=== PATIENT | female | born 1945 | race Caucasian/White ===

== ENCOUNTER 2022-07-10 01:04 | Emergency (ER) | payer MEDICARE, MEDICAID ==
[~2022-07-10] VITALS: Ht 160 cm; Wt 81.0 kg
[~2022-07-10 01:04] MED LIST: ALPR-324 PO; ALPR1TAB7 PO; AMIO200T67 PO; AMIT50TA3 PO; APIX5TAB3 PO; ESCI5TAB PO; LOSA25TA41 PO; METO-395 PO; POLY1DRO2 OP
[2022-07-10] MEDS ORDERED: methylPREDNISolone sod succ 125mg/2ml vial IV ONE (01:35)
[2022-07-10] MEDS ORDERED: ipratropium 0.5 MG/2.5ML nebule IH ONE (01:35)
[2022-07-10] MEDS ORDERED: albuterol 2.5 MG/3 ML nebule CONTNEB STA (01:35)
[2022-07-10 01:50] LABS: BASOPHILS % (AUTO) 0.3 % (0-1); EOSINOPHILS % (AUTO) 0.2 % (0-6); HEMATOCRIT 37.4 % (35.0-45.0); HEMOGLOBIN 12.4 g/dl (12.0-16.0); LYMPHOCYTES # (AUTO) 0.8 X10'3 (1.1-4.8); LYMPHOCYTES % (AUTO) 8.2 % (21-51); MEAN CORPUSCULAR HEMOGLOBIN 27.8 PG (27.0-31.0); MEAN CORPUSCULAR HGB CONC 33.2 g/dL (33.0-36.5); MEAN CORPUSCULAR VOLUME 83.8 FL (78-98); MEAN PLATELET VOLUME 7.3 FL (7.4-10.4); MONOCYTES # (AUTO) 0.4 X10'3 (0-0.9); MONOCYTES % (AUTO) 4.5 % (2-12); NEUTROPHILS # (AUTO) 8.6 X10'3 (1.8-7.7); NEUTROPHILS % (AUTO) 86.8 % (42-75); PLATELET COUNT 231 X10'3 (140-440); RED BLOOD COUNT 4.47 X10'6 (4.20-5.60); RED CELL DISTRIBUTION WIDTH 15.8 % (11.5-14.5); WHITE BLOOD COUNT 9.9 X10'3 (4.5-11.0)
[2022-07-10] MEDS ORDERED: ipratropium/albuterol 3ml nebule NEB ONE (01:50)
[2022-07-10 02:10] LABS: ALANINE AMINOTRANSFERASE 17 U/L (12-78); ALBUMIN 3.6 G/DL (3.4-5.0); ALBUMIN/GLOBULIN RATIO 0.9 (1.1-1.5); ALKALINE PHOSPHATASE 86 IU/L (46-116); ASPARTATE AMINO TRANSFERASE 29 U/L (10-37); BILIRUBIN,TOTAL 0.8 MG/DL (0.1-1.0); BLOOD UREA NITROGEN 22 MG/DL (7-18); BUN/CREATININE RATIO 17.6 (6.6-38.0); CREATININE 1.25 MG/DL (0.40-0.90); GLUCOSE 243 MG/DL (70-104); TOTAL CARBON DIOXIDE 28.6 MMOL/L (24-32); TOTAL PROTEIN 7.7 G/DL (6.4-8.2); eGFR 41 ML/MIN
[2022-07-10 02:17] LABS: CHLORIDE 103 MMOL/L (99-107)
[2022-07-10] MEDS ORDERED: furosemide 10 MG/1 ML 10ml inj IV ONE (02:20)
[2022-07-10] MEDS ORDERED: diltiazem 5mg/ml 5ml inj. IV ONE (02:20)
[2022-07-10 02:23] LABS: ANION GAP 12 (8-16); POTASSIUM 3.5 MMOL/L (3.5-5.1); SODIUM 144 MMOL/L (135-145)
--- NOTE | 2022-07-10 03:00 | NUR ---
0300 pt rate in 50's, pt states that she feels better, Dr Summers notifed
--- NOTE | 2022-07-10 04:48 | NUR ---
0400 pt sleeping, sat 96% on 3 LNC, easily awaken, no complaints at this time
[2022-07-10 05:41] VITALS: BP 140/63
--- NOTE | 2022-07-10 06:07 | NUR ---
0500 pt clothing changed, large amout of urine noted on pads as well, pt voided another 500cc of urine 0600 pt asst to [facility], pt void 600cc of urine w/o difficulty
--- NOTE | 2022-07-10 06:24 | NUR ---
report given to Eladio BRAXTON.
--- NOTE | 2022-07-10 06:25 | NUR ---
care of pt given to IRAIS Hendricks. Pt waiting ride home at this time.
== END 2022-07-10 07:28 | disposition home or self-care (01) ==
LOC: ER 01:05
DX: R06.02 Shortness of breath (principal); I48.20 Chronic atrial fibrillation, unspecified; I11.0 Hypertensive heart disease with heart failure; I50.9 Heart failure, unspecified; J44.9 Chronic obstructive pulmonary disease, unspecified; Z88.5 Allergy status to narcotic agent
CPT/HCPCS: 36415; 71045; 80053; 83880; 84484; 85025; 93005; 94640; 96374; 96375; 99285; J1940; J2930; J3490; 94760

== ENCOUNTER 2022-10-06 15:05 | Emergency (ER) | payer MEDICARE, MEDICAID ==
[~2022-10-06] VITALS: Ht 165.1 cm; Wt 71.4 kg
[2022-10-06 16:34] LABS: BASOPHILS # (AUTO) 0.1 X10'3 (0-0.2); BASOPHILS % (AUTO) 0.6 % (0-1); EOSINOPHILS # (AUTO) 0.2 X10'3 (0-0.9); EOSINOPHILS % (AUTO) 1.2 % (0-6); HEMATOCRIT 34.3 % (35.0-45.0); LYMPHOCYTES # (AUTO) 2.2 X10'3 (1.1-4.8); LYMPHOCYTES % (AUTO) 16.5 % (21-51); MEAN CORPUSCULAR HEMOGLOBIN 27.3 PG (27.0-31.0); MEAN CORPUSCULAR VOLUME 85.2 FL (78-98); MEAN PLATELET VOLUME 7.5 FL (7.4-10.4); MONOCYTES # (AUTO) 1.3 X10'3 (0-0.9); MONOCYTES % (AUTO) 9.7 % (2-12); NEUTROPHILS # (AUTO) 9.7 X10'3 (1.8-7.7); PLATELET COUNT 366 X10'3 (140-440); RED BLOOD COUNT 4.03 X10'6 (4.20-5.60); RED CELL DISTRIBUTION WIDTH 17.5 % (11.5-14.5); WHITE BLOOD COUNT 13.4 X10'3 (4.5-11.0)
[2022-10-06 16:35] LABS: CLARITY,URINE CLEAR (Clear); COLOR,URINE YELLOW (Yellow); GLUCOSE, URINE NEGATIVE (Neg); KETONES,URINE NEGATIVE (Neg); LEUKOCYTE ESTERASE ,URINE NEGATIVE (Neg); NITRITES, URINE NEGATIVE (Neg); OCCULT BLOOD,URINE NEGATIVE (Neg); PROTEIN,URINE TRACE mg/dl (Neg); UROBILINOGEN,URINE 0.2 E.U/dL (0.2-1.0)
[2022-10-06 16:40] LABS: UA COLLECTION TYPE VOIDED
[2022-10-06 16:42] LABS: RBC,URINE NONE SEEN /HPF (0-2); WBC,URINE 0-4 /HPF (0-4)
[2022-10-06 16:43] LABS: BACTERIA,URINE FEW /HPF (Neg); MUCUS STRANDS FEW /LPF (Neg); SQUAMOUS EPITHELIAL CELL,UR FEW /LPF (FEW); TRANSITIONAL EPI CELLS,URINE FEW /HPF
[2022-10-06 16:53] LABS: ALANINE AMINOTRANSFERASE 27 U/L (12-78); ALBUMIN 3.9 G/DL (3.4-5.0); ALKALINE PHOSPHATASE 82 IU/L (46-116); ANION GAP 8 (8-16); ASPARTATE AMINO TRANSFERASE 23 U/L (10-37); BILIRUBIN,TOTAL 0.5 MG/DL (0.1-1.0); BLOOD UREA NITROGEN 42 MG/DL (7-18); BUN/CREATININE RATIO 22.8 (6.6-38.0); CALCIUM 8.9 MG/DL (8.5-10.1); CHLORIDE 102 MMOL/L (99-107); CREATININE 1.84 MG/DL (0.40-0.90); GLUCOSE 158 MG/DL (70-104); POTASSIUM 5.5 MMOL/L (3.5-5.1); SODIUM 134 MMOL/L (135-145); TOTAL CARBON DIOXIDE 24.1 MMOL/L (24-32); TOTAL PROTEIN 7.8 G/DL (6.4-8.2); eGFR 27 ML/MIN
[2022-10-06] MEDS ORDERED: normal saline 1000ML IV soln IVB ONE (17:05)
--- NOTE | 2022-10-06 18:00 | NUR ---
TC to Sarah from [facility] patient sent to ED for hallucinations and psych evaluation, HX mental health "issues", telephone call transfered to MARGIE Knight.
[2022-10-06 18:52] LABS: ETHANOL < 0.010 GM/DL (0.0-0.010)
--- NOTE | 2022-10-06 19:32 | NUR ---
MEGAN HAYES [phone]/ [phone]
--- NOTE | 2022-10-06 19:50 | NUR ---
PT LAYING IN HOSPITAL BED RESTING WITH EYES CLOSED, NO DISTRESS NOTED
[2022-10-06 20:36] LABS: URINE AMPHETAMINE SCREEN NEGATIVE (Neg); URINE BARBITUATE SCREEN NEGATIVE (Neg); URINE BENZODIAZEPINES SCREEN NEGATIVE (Neg); URINE CANNABINOID SCREEN NEGATIVE (Neg); URINE COCAINE SCREEN NEGATIVE (Neg); URINE METHADONE SCREEN NEGATIVE (Neg); URINE OPIATE SCREEN NEGATIVE (Neg); URINE PHENCYCLIDINE SCREEN NEGATIVE (Neg)
--- NOTE | 2022-10-06 23:08 | NUR ---
pt placed onto a inpatient bed
--- NOTE | 2022-10-07 07:25 | NUR ---
TC To [place] to request pts med list. Bond states "you know she signed herself out AMA last night right?" Report and notes suggest pt was sent out involuntarily. Med list to be faxed
--- NOTE | 2022-10-07 07:27 | NUR ---
When questioned about whether she left [facility], pt states "No, they made me go."
[2022-10-07] MEDS ORDERED: SPIR25TA5 PO (07:56)
[2022-10-07] MEDS ORDERED: RIVA20TA PO (07:56)
[2022-10-07] MEDS ORDERED: AMIO200T61 PO (07:56)
[2022-10-07] MEDS ORDERED: LORA-269 PO (07:56)
--- NOTE | 2022-10-07 07:57 | NUR ---
TC from [facility] for update, update provided. Telephone provided to pt for phone call.
[2022-10-07] MEDS ORDERED: ATOR20TA PO (08:39)
[2022-10-07] MEDS ORDERED: CARV-50 PO (08:39)
[2022-10-07] MEDS ORDERED: ALB0.5UD IH (08:39)
[2022-10-07] MEDS ORDERED: AMLO10TA13 PO (08:39)
--- NOTE | 2022-10-07 09:25 | NUR ---
Pt sitting calmly on side of bed quietly eating breakfast
--- NOTE | 2022-10-07 11:49 | NUR ---
Pt ambulating to bathroom, calm and cooperative.
--- NOTE | 2022-10-07 12:33 | NUR ---
Report given to Helen BRAXTON
[2022-10-07] MEDS ORDERED: albuterol 2.5 MG/3 ML nebule NEB PRN (13:10)
--- NOTE | 2022-10-07 13:26 | NUR ---
PATIENT LYING IN BED WITH HER EYES CLOSED, EQUAL RISE AND FALL OF CHEST.
[2022-10-07] MEDS: amLODIPine 5mg tablet PO SCH (14:43)
--- NOTE | 2022-10-07 14:46 | NUR ---
PATIENTS NEIGHBOR IS AT BEDSIDE AND BROUGHT PATIENT A BOOK
[2022-10-07] MEDS ORDERED: normal saline 1000ML IV soln IVB ONE (15:25)
--- NOTE | 2022-10-07 16:00 | NUR ---
PATIENT SITTING UP IN BED TALKED WITH ROOMMATE
--- NOTE | 2022-10-07 16:00 | NUR ---
IV STARTED FOR IV FLUID BOLUS DUE TO LABS.
[2022-10-07 16:02] LABS: BASOPHILS # (AUTO) 0.1 X10'3 (0-0.2); BASOPHILS % (AUTO) 0.5 % (0-1); EOSINOPHILS # (AUTO) 0.1 X10'3 (0-0.9); EOSINOPHILS % (AUTO) 1.4 % (0-6); HEMATOCRIT 33.2 % (35.0-45.0); HEMOGLOBIN 11.1 g/dl (12.0-16.0); LYMPHOCYTES # (AUTO) 1.8 X10'3 (1.1-4.8); LYMPHOCYTES % (AUTO) 17.9 % (21-51); MEAN CORPUSCULAR HEMOGLOBIN 28.4 PG (27.0-31.0); MEAN CORPUSCULAR HGB CONC 33.4 g/dL (33.0-36.5); MEAN CORPUSCULAR VOLUME 85.1 FL (78-98); MEAN PLATELET VOLUME 7.2 FL (7.4-10.4); MONOCYTES % (AUTO) 9.7 % (2-12); NEUTROPHILS # (AUTO) 6.9 X10'3 (1.8-7.7); NEUTROPHILS % (AUTO) 70.5 % (42-75); PLATELET COUNT 317 X10'3 (140-440); RED CELL DISTRIBUTION WIDTH 18.2 % (11.5-14.5); WHITE BLOOD COUNT 9.8 X10'3 (4.5-11.0)
[2022-10-07] MEDS: levoTHYROXINE 25mcg tablet PO SCH (16:14)
[2022-10-07 16:22] LABS: ALANINE AMINOTRANSFERASE 22 U/L (12-78); ALBUMIN 3.7 G/DL (3.4-5.0); ALKALINE PHOSPHATASE 83 IU/L (46-116); ANION GAP 6 (8-16); ASPARTATE AMINO TRANSFERASE 19 U/L (10-37); BILIRUBIN,TOTAL 0.3 MG/DL (0.1-1.0); BLOOD UREA NITROGEN 38 MG/DL (7-18); CALCIUM 9.1 MG/DL (8.5-10.1); CHLORIDE 103 MMOL/L (99-107); CREATININE 1.46 MG/DL (0.40-0.90); GLUCOSE 106 MG/DL (70-104); POTASSIUM 5.2 MMOL/L (3.5-5.1); SODIUM 134 MMOL/L (135-145); TOTAL CARBON DIOXIDE 24.9 MMOL/L (24-32); TOTAL PROTEIN 7.3 G/DL (6.4-8.2); eGFR 35 ML/MIN
--- NOTE | 2022-10-07 16:48 | NUR ---
PACKET SENT TO [facility]
[2022-10-07] MEDS: rivaroxaban 20mg tablet PO SCH (18:54)
--- NOTE | 2022-10-07 19:50 | NUR ---
Received report from Anne BRAXTON. Pt A&O x 2, unable to recal date/event. Pt appears somewhat paranoid with tangential speech. Pt endorses increased confusion/difficulty with processing thoughts. Denies SI/HI, AV/H. Pt states depression remains unchanged, no c/o anxiety. [facility] to complete full eval in AM. Pt denies pain at this time. Lying supine in green scrubs, appears to be sleeping.
[2022-10-07] MEDS: amiodarone 200mg tablet PO SCH (20:12)
[2022-10-07] MEDS: ESCITALOPRAM OXALATE 5 MG TABLET PO SCH (20:13)
[2022-10-07] MEDS: carvedilol 6.25mg tablet PO SCH (20:13)
[2022-10-07] MEDS: atorvastatin 20mg tablet PO SCH (20:13)
[2022-10-07] MEDS ORDERED: levoTHYROXINE 25mcg tablet PO ONE ×2 (21:15→21:30)
[2022-10-07] MEDS ORDERED: normal saline 1000ml 1,000 ML IV ONE (21:15)
[2022-10-07] MEDS ORDERED: acetaminophen 325mg tablet PO PRN (21:15)
--- NOTE | 2022-10-07 21:51 | NUR ---
Pt ambulated to nurse's station reporting 6/10 headache "like a headband". This nurse received verbal order for PRN Acetaminophen 325mg 2 tabs q4 hours PO for pain, 50 mcg synthroid PO now, and 1000mL NS bolus IV running to gravity for patient. Pt PIV to left forearm flushed without difficulty/pain. Pt conversing appropriately. Lying in bed resting.
--- NOTE | 2022-10-07 22:58 | NUR ---
1000 mL NS IV completed. No s/s of infiltrate. Flushed with 10mL NS without difficulty.
[2022-10-07] MEDS: LORazepam 0.5 MG tablet PO PRN (23:51)
[2022-10-08] MEDS ORDERED: traZODone 50mg tablet PO ONE ×2 (00:40→22:05)
--- NOTE | 2022-10-08 00:48 | NUR ---
Pt lying supine. C/O increased anxiety and difficulty sleeping. PRN ativan given. One time order for Trazodone given.
--- NOTE | 2022-10-08 01:55 | NUR ---
Pt appears to be sleeping, lying supine. In no apparent distress.
--- NOTE | 2022-10-08 03:30 | NUR ---
Pt lying on back, appears to be sleeping. In no apparent distress.
--- NOTE | 2022-10-08 05:10 | NUR ---
Pt lying on left side, appears to be sleeping. In no apparent distress.
--- NOTE | 2022-10-08 05:57 | NUR ---
Pt lying in bed awake, conversing with peer. In no apparent distress. Pt expressed to this TILE SPRAYER that PRN Trazodone helped with sleep.
--- NOTE | 2022-10-08 06:30 | NUR ---
Lab here to draw the patient.
--- NOTE | 2022-10-08 06:44 | NUR ---
Pt asked for some bath wipes and was provided with some.
--- NOTE | 2022-10-08 06:45 | NUR ---
Pt up to use the bathroom.
[2022-10-08 06:59] LABS: ALANINE AMINOTRANSFERASE 16 U/L (12-78); ALBUMIN 3.3 G/DL (3.4-5.0); ALKALINE PHOSPHATASE 71 IU/L (46-116); ANION GAP 7 (8-16); ASPARTATE AMINO TRANSFERASE 19 U/L (10-37); BILIRUBIN,TOTAL 0.4 MG/DL (0.1-1.0); BLOOD UREA NITROGEN 28 MG/DL (7-18); CALCIUM 8.6 MG/DL (8.5-10.1); CHLORIDE 107 MMOL/L (99-107); CREATININE 1.27 MG/DL (0.40-0.90); GLUCOSE 106 MG/DL (70-104); POTASSIUM 4.6 MMOL/L (3.5-5.1); SODIUM 139 MMOL/L (135-145); TOTAL CARBON DIOXIDE 25.5 MMOL/L (24-32); TOTAL PROTEIN 6.6 G/DL (6.4-8.2); eGFR 41 ML/MIN
[2022-10-08] MEDS: levoTHYROXINE 25mcg tablet PO SCH (07:28)
--- NOTE | 2022-10-08 08:16 | NUR ---
[facility] is at bedside evaluating the patient.
[2022-10-08] MEDS: carvedilol 6.25mg tablet PO SCH ×2 (08:22→19:48)
[2022-10-08] MEDS: spironolactone 25 MG tablet PO SCH (08:22)
[2022-10-08] MEDS: losartan 25mg tablet PO SCH (08:22)
[2022-10-08] MEDS: amiodarone 200mg tablet PO SCH ×2 (08:22→19:48)
[2022-10-08] MEDS: amLODIPine 5mg tablet PO SCH (08:23)
--- NOTE | 2022-10-08 08:23 | NUR ---
K+ was 4.6 this morning, WNL.
--- NOTE | 2022-10-08 09:24 | NUR ---
[facility] reports that pt is not being placed on a hold. She will refer to outreach and education social worker.
--- NOTE | 2022-10-08 10:31 | NUR ---
tech did binax swab on pt, tech took tube down to lab.
--- NOTE | 2022-10-08 12:09 | NUR ---
Pt is eating her lunch.
--- NOTE | 2022-10-08 12:42 | NUR ---
D/c'd saline lock right forearm.
--- NOTE | 2022-10-08 14:08 | NUR ---
Pt is awake lying quietly in bed on her back.
--- NOTE | 2022-10-08 16:07 | NUR ---
Rebeca walker in [facility] - 10/08/22 at 1628 by MORRIS Pt is awake lying quietly in bed. Offered her some reading materials. Pt statea
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
--- NOTE | 2022-10-08 17:26 | NUR ---
Pt requested to make a phone call. Pt called Sarita.
[2022-10-08] MEDS: rivaroxaban 20mg tablet PO SCH (17:49)
--- NOTE | 2022-10-08 18:39 | NUR ---
Patient ate her dinner. She is attempting to sleep. No distress.
[2022-10-08] MEDS: ESCITALOPRAM OXALATE 5 MG TABLET PO SCH (20:12)
[2022-10-08] MEDS: atorvastatin 20mg tablet PO SCH (20:12)
--- NOTE | 2022-10-08 21:35 | NUR ---
Patient is sleeping quietly. No distress.
--- NOTE | 2022-10-08 22:05 | NUR ---
Dr. ARCHER was in overflow. He gave this newswriter a verbal order for Trazadone 50 mg order for this patient. Anxiety is present, a PRN will be given for that.
[2022-10-08] MEDS: LORazepam 0.5 MG tablet PO PRN (22:14)
--- NOTE | 2022-10-09 01:51 | NUR ---
Patient is wupine in bed sleeping.
--- NOTE | 2022-10-09 03:07 | NUR ---
Patient is sleeping quietly, no distress.
--- NOTE | 2022-10-09 04:45 | NUR ---
Patient is sleeping quietly in no distress.
--- NOTE | 2022-10-09 06:15 | NUR ---
Assummed care. Pt awake and in bed with no distress noted.
[2022-10-09] MEDS: levoTHYROXINE 25mcg tablet PO SCH (08:11)
--- NOTE | 2022-10-09 08:25 | NUR ---
Medications administered. Pt is in no distress. Pt eating breakfast at this time.
[2022-10-09] MEDS: spironolactone 25 MG tablet PO SCH (08:38)
[2022-10-09] MEDS: amiodarone 200mg tablet PO SCH ×2 (08:38→20:39)
[2022-10-09] MEDS: carvedilol 6.25mg tablet PO SCH ×2 (08:38→20:40)
[2022-10-09] MEDS: losartan 25mg tablet PO SCH (08:38)
[2022-10-09] MEDS: amLODIPine 5mg tablet PO SCH (08:39)
--- NOTE | 2022-10-09 10:23 | NUR ---
Pt up to restroom. Pt states she had a large BM.
--- NOTE | 2022-10-09 11:26 | NUR ---
Pt sleeping on her back, noted rise and fall of chest.
--- NOTE | 2022-10-09 12:35 | NUR ---
Pt. neighbor at bedside. Pt eating lunch at this time. No distress noted.
--- NOTE | 2022-10-09 14:10 | NUR ---
pt resting on back with eyes closed, equal non-labored respirations.
--- NOTE | 2022-10-09 15:54 | NUR ---
Pt awake lying on her backside in bed. No distress noted.
--- NOTE | 2022-10-09 17:37 | NUR ---
Pt resting in bed with the blanket covering her face. Noted rise and fall of chest. No distress noted.
[2022-10-09] MEDS: rivaroxaban 20mg tablet PO SCH (17:51)
--- NOTE | 2022-10-09 18:02 | NUR ---
Pt awake eating dinner at bedside.
--- NOTE | 2022-10-09 18:45 | NUR ---
Patient remains alert but with her normal confussion. She socializes with the elderly female on the next bed. Patient in view from the nurses station.
--- NOTE | 2022-10-09 19:56 | NUR ---
Patient is resting quietly, she sits up in her bed.
[2022-10-09] MEDS ORDERED: traZODone 50mg tablet PO ONE (20:15)
[2022-10-09] MEDS: atorvastatin 20mg tablet PO SCH (20:39)
--- NOTE | 2022-10-09 20:51 | NUR ---
Patient was compliant with medications. She is resting quietly on her bed, sleeping intermittently.
[2022-10-09] MEDS: ESCITALOPRAM OXALATE 5 MG TABLET PO SCH (21:42)
--- NOTE | 2022-10-09 23:03 | NUR ---
Patient is sleeping is a supine position. Good color, no distress.
--- NOTE | 2022-10-10 00:43 | NUR ---
Patient is sleeping quietly, no distress.
--- NOTE | 2022-10-10 05:13 | NUR ---
Patient is sleeping quietly, no distress.
--- NOTE | 2022-10-10 07:00 | NUR ---
Pt awake in bed, very pleasant. No current concerns at this time.
[2022-10-10] MEDS: carvedilol 6.25mg tablet PO SCH ×2 (07:23→21:45)
[2022-10-10] MEDS: amLODIPine 5mg tablet PO SCH (07:23)
[2022-10-10] MEDS: spironolactone 25 MG tablet PO SCH (07:24)
[2022-10-10] MEDS: losartan 25mg tablet PO SCH (07:24)
[2022-10-10] MEDS: amiodarone 200mg tablet PO SCH ×2 (07:24→21:45)
[2022-10-10] MEDS: levoTHYROXINE 25mcg tablet PO SCH (07:25)
--- NOTE | 2022-10-10 08:26 | NUR ---
Pt awake with no noticible behavioral issues, Pt pleasant and appears alert and oriented.
--- NOTE | 2022-10-10 09:00 | NUR ---
Pt awake, no distress or current concerns or changes
--- NOTE | 2022-10-10 10:35 | NUR ---
Pt awake and talkative with Student RN, pt resting comfortably at this time.
--- NOTE | 2022-10-10 11:58 | NUR ---
Pt sleeping comfortably at this time/no signs of distress
--- NOTE | 2022-10-10 13:49 | NUR ---
Pt doing very well, patient is very kind and thankful. Pt ate a good breakfast, went to restoom and asked for new socks.
--- NOTE | 2022-10-10 15:04 | NUR ---
Pt sitting at bedside, reading a book, no signs of distress. Pt was also on the phone with MEGAN Stein.
--- NOTE | 2022-10-10 16:49 | NUR ---
Pt resting comfortably in bed. Pleasant and talking with neighbor. Was up to the bathroom and asked for some hot tea. No current signs of distress, all needs met at this time.
[2022-10-10] MEDS: rivaroxaban 20mg tablet PO SCH (17:44)
--- NOTE | 2022-10-10 18:11 | NUR ---
Pt eating dinner, talkative. No current distress or new concerns at this time.
[2022-10-10] MEDS: atorvastatin 20mg tablet PO SCH (21:45)
[2022-10-10] MEDS: ESCITALOPRAM OXALATE 5 MG TABLET PO SCH (21:45)
[2022-10-10] MEDS: LORazepam 0.5 MG tablet PO PRN (21:54)
--- NOTE | 2022-10-11 00:23 | NUR ---
Pt awake at start of shift. Went to sleep and missed when the pt is next bed was moved to main ER. Pt upset she had become friendly with roomate. Informed roomate will likely be back tomorrow. Pt denies any health symptoms. Pt is aware of her poor memory and periods of confusion. She says she will not be able to return to her home in [place]. The pt has no children or other relatives. Her POA is named Sarita and is her neighbor. The pt believes Sarita is working on trying to find a assisted living for her to live. Pt is pleasant and cooperative. Grateful for her care. Took all her medications. Sleeping at this time.
--- NOTE | 2022-10-11 01:07 | NUR ---
pt is awake to use the bathroom, requested a cup of tea. Pt is calm cooperative sitting quietly in bed.
--- NOTE | 2022-10-11 02:31 | NUR ---
Pt continues sleeping uninterupted.
--- NOTE | 2022-10-11 05:18 | NUR ---
Pt sleeping resp even and unlabored.
--- NOTE | 2022-10-11 06:40 | NUR ---
Patient sleeping supine. No distress observed. Continue to monitor.
--- NOTE | 2022-10-11 08:20 | NUR ---
Patient eating breakfast. No distress observed. Continue to monitor.
[2022-10-11] MEDS: spironolactone 25 MG tablet PO SCH (08:50)
[2022-10-11] MEDS: carvedilol 6.25mg tablet PO SCH ×2 (08:51→20:09)
[2022-10-11] MEDS: losartan 25mg tablet PO SCH (08:51)
[2022-10-11] MEDS: amiodarone 200mg tablet PO SCH ×2 (08:51→20:09)
[2022-10-11] MEDS: amLODIPine 5mg tablet PO SCH (08:52)
[2022-10-11] MEDS: levoTHYROXINE 25mcg tablet PO SCH (08:53)
--- NOTE | 2022-10-11 10:11 | NUR ---
Patient came to the nurse's station and stated she had a good BM. No distress observed. Continue to monitor.
--- NOTE | 2022-10-11 12:32 | NUR ---
Patient eating lunch. No distress observed. Continue to monitor.
--- NOTE | 2022-10-11 14:18 | NUR ---
Patient awake and sitting up in bed. No distress observed. Continue to monitor.
--- NOTE | 2022-10-11 15:11 | NUR ---
Patient's neighbor and POA visiting at bed side. No distress observed. Continue to monitor.
--- NOTE | 2022-10-11 16:20 | NUR ---
Sarita, Patient's POA, advised RN that [facility]'s social media strategist, Suly is looking for housing for patient. Continue to monitor.
--- NOTE | 2022-10-11 17:37 | NUR ---
Patient eating dinner. No distress observed. Continue to monitor.
[2022-10-11] MEDS: rivaroxaban 20mg tablet PO SCH (18:51)
--- NOTE | 2022-10-11 19:30 | NUR ---
PT RESTING IN BED. NO VERBAL COMPLAINTS NO VISUAL SIGNS OF DISTRESS NOR DISCOMFORT
[2022-10-11] MEDS: atorvastatin 20mg tablet PO SCH (20:58)
[2022-10-11] MEDS: ESCITALOPRAM OXALATE 5 MG TABLET PO SCH (20:58)
[2022-10-12] MEDS: acetaminophen 325mg tablet PO PRN ×2 (01:17→21:47)
[2022-10-12] MEDS: LORazepam 0.5 MG tablet PO PRN ×3 (01:17→21:47)
--- NOTE | 2022-10-12 01:20 | NUR ---
PT REQUESTED TYLENOL FOR MARTIN AND SOMETHING TO HELP HER SLEEP. PRN MED GIVEN
--- NOTE | 2022-10-12 05:20 | NUR ---
PT STILL SLEEPING NO VISUAL SIGN OF DISCOMFORT NOR DISTRESS.
--- NOTE | 2022-10-12 06:36 | NUR ---
Patient sleeping supine. No distress observed. Continue to monitor.
[2022-10-12] MEDS: levoTHYROXINE 25mcg tablet PO SCH (07:00)
[2022-10-12] MEDS: carvedilol 6.25mg tablet PO SCH ×2 (08:00→20:29)
[2022-10-12] MEDS: losartan 25mg tablet PO SCH (08:00)
[2022-10-12] MEDS: amiodarone 200mg tablet PO SCH ×2 (08:00→20:29)
[2022-10-12] MEDS: spironolactone 25 MG tablet PO SCH (08:00)
[2022-10-12] MEDS: amLODIPine 5mg tablet PO SCH (08:00)
--- NOTE | 2022-10-12 08:22 | NUR ---
Patient eating breakfast. No distress observed. Continue to monitor.
--- NOTE | 2022-10-12 10:11 | NUR ---
Patient chatting with neighbor. No distress observed. Continue to monitor.
--- NOTE | 2022-10-12 12:18 | NUR ---
Patient is eating lunch. No distress observed. Continue to monitor.
--- NOTE | 2022-10-12 13:40 | NUR ---
Patient is very anxious. RN gave patient 0.5 mg of Ativan. Patient is afraid that [facility] will boot her out on the streets . RN re-assured her that she is safe and we will keep her safe. Continue to monitor.
--- NOTE | 2022-10-12 15:36 | NUR ---
Patient advised RN that she feels much better after the medication. Patient and her neighbor are having a snack. Continue to monitor.
--- NOTE | 2022-10-12 15:46 | NUR ---
Patient reported very large BM today and is very happy. Continue to monitor.
--- NOTE | 2022-10-12 17:42 | NUR ---
Patient eating dinner. No distress observed. Continue to monitor.
[2022-10-12] MEDS: rivaroxaban 20mg tablet PO SCH (18:02)
--- NOTE | 2022-10-12 19:58 | NUR ---
The patient has been watching tv with peer. She ate 100% of her dinner. She was cooperative with the nursing assessment but was quite circumstantial. She stated that she is having continued problems with anxiety. She is quite fearful that she will be forced to leave the hospital and she feels that she can no longer care for herself at home. She is not wanting any information to be given out to anyone except Sarita who is helping her with her affairs.
[2022-10-12] MEDS: atorvastatin 20mg tablet PO SCH (20:29)
[2022-10-12] MEDS: ESCITALOPRAM OXALATE 5 MG TABLET PO SCH (20:29)
--- NOTE | 2022-10-12 20:55 | NUR ---
The patient is resting on her bed and pleasantly socializing with a peer.
--- NOTE | 2022-10-12 23:25 | NUR ---
The patient appears to be sleeping
--- NOTE | 2022-10-13 01:02 | NUR ---
The patient up briefly to use the bathroom but is now back in bed
--- NOTE | 2022-10-13 03:05 | NUR ---
The patient appears to be sleeping
--- NOTE | 2022-10-13 05:08 | NUR ---
The patient appears to be sleeping
--- NOTE | 2022-10-13 06:53 | NUR ---
Patient sleeping supine. Light snoring respirations. No distress observed. Continue to monitor.
--- NOTE | 2022-10-13 08:10 | NUR ---
Patient eating breakfast. No distress observed. Continue to monitor.
[2022-10-13] MEDS: carvedilol 6.25mg tablet PO SCH ×2 (08:21→18:49)
[2022-10-13] MEDS: amiodarone 200mg tablet PO SCH ×2 (08:22→18:49)
[2022-10-13] MEDS: losartan 25mg tablet PO SCH (08:22)
[2022-10-13] MEDS: spironolactone 25 MG tablet PO SCH (08:22)
[2022-10-13] MEDS: levoTHYROXINE 25mcg tablet PO SCH (08:23)
[2022-10-13] MEDS: amLODIPine 5mg tablet PO SCH (08:23)
--- NOTE | 2022-10-13 10:19 | NUR ---
Patient came up and reported she had a "good B.M." No distress observed. Continue to monitor.
--- NOTE | 2022-10-13 12:11 | NUR ---
Patient eating lunch. No distress observed. Continue to monitor.
--- NOTE | 2022-10-13 14:19 | NUR ---
Patient watching T.V. No distress observed. Continue to monitor.
--- NOTE | 2022-10-13 16:04 | NUR ---
Patient watching T.V. No distress observed. Continue to monitor.
--- NOTE | 2022-10-13 17:00 | NUR ---
vitals done, patient sitting in bed watching tv, no requests at this time.
--- NOTE | 2022-10-13 18:44 | NUR ---
Social Work Consult sent to assist with placement.
--- NOTE | 2022-10-13 18:45 | NUR ---
ASSUMED CARE OF PATIENT, NOTED TO BE UP USING PHONE TO SPEAK TO POA, APPEARANCE IS WELL GROOMED AND CLEAN SCRUBS. PATIENT IS STABLE, DOES NOT APPEAR TO BE ANXIOUS. IS HAPPY WHILE SPEAKING ON PHONE. POA IS BRINGING PATIENT HER DEPENDS TO WEAR. DENIES PAIN.
[2022-10-13] MEDS: rivaroxaban 20mg tablet PO SCH (18:48)
--- NOTE | 2022-10-13 20:23 | NUR ---
PATIENT SLEEPING. NEEDS NOTED. RR EVEN/NONLABORTED. RESTING COMFORTABLY. WILL CONTINUE TO MONITOR.
[2022-10-13] MEDS: atorvastatin 20mg tablet PO SCH (20:46)
[2022-10-13] MEDS: ESCITALOPRAM OXALATE 5 MG TABLET PO SCH (20:46)
[2022-10-13] MEDS: LORazepam 0.5 MG tablet PO PRN (20:46)
[2022-10-13] MEDS: acetaminophen 325mg tablet PO PRN (20:49)
--- NOTE | 2022-10-13 23:00 | NUR ---
PATIENT SITTING UP ON SIDE OF BED FEELING ANXIOUS D/T COHORT SHOUTING. REASSURED HER THAT IT WON'T LAST LONG. PRN ATIVAN GIVEN WITHIN LAST FEW HOURS. NO NEEDS VOICED AT THIS TIME. WILL CONTINUE TO MONITOR.
--- NOTE | 2022-10-14 01:42 | NUR ---
PATIENT APPEARS TO BE SLEEPING. NO NEEDS NOTED. RR EVEN/NONLABORED. WILL CONTINUE TO MONITOR.
--- NOTE | 2022-10-14 03:23 | NUR ---
Patient sleeping, no s/sx of distress noted. RR even/nonlabored. Will continue to monitor.
--- NOTE | 2022-10-14 04:31 | NUR ---
Resting comfortably in bed. No needs noted. Will continue to monitor.
--- NOTE | 2022-10-14 05:55 | NUR ---
Patient resting with eyes closed. No s/sx of distress noted. RR even/nonlabored. Will continue to monitor.
--- NOTE | 2022-10-14 06:36 | NUR ---
Patient sleeping in bed. Respirations are even and nonlabored.
[2022-10-14] MEDS: levoTHYROXINE 25mcg tablet PO SCH (07:00)
[2022-10-14] MEDS: carvedilol 6.25mg tablet PO SCH ×2 (09:19→21:47)
[2022-10-14] MEDS: amiodarone 200mg tablet PO SCH ×2 (09:19→21:48)
[2022-10-14] MEDS: losartan 25mg tablet PO SCH (09:20)
[2022-10-14] MEDS: spironolactone 25 MG tablet PO SCH (09:20)
[2022-10-14] MEDS: amLODIPine 5mg tablet PO SCH (09:21)
--- NOTE | 2022-10-14 09:56 | NUR ---
Patient slept in until 08:10 then awoke for breakfast. Patient was given fresh water. Patient requesting pullup which was provided. Patient is medication compliant.
[2022-10-14] MEDS: LORazepam 0.5 MG tablet PO PRN ×2 (12:40→21:42)
--- NOTE | 2022-10-14 13:37 | NUR ---
Patient was given Ativan for S/S of anxiety. Patient lying in bed at this time and appears to be sleeping.
[2022-10-14] MEDS: rivaroxaban 20mg tablet PO SCH (18:50)
--- NOTE | 2022-10-14 19:05 | NUR ---
Patient lying in bed awake, patient verbalizing that she would like a shower, [facility] getting ready to take patient to shower.
[2022-10-14] MEDS: ESCITALOPRAM OXALATE 5 MG TABLET PO SCH (21:42)
[2022-10-14] MEDS: atorvastatin 20mg tablet PO SCH (21:42)
--- NOTE | 2022-10-15 03:16 | NUR ---
Patient is laying in bed with her eyes closed. Patient appears to be sleeping. Respirations are even and nonlabored.
--- NOTE | 2022-10-15 03:26 | NUR ---
Patient up to the restroom and back to bed. No distress noted.
--- NOTE | 2022-10-15 05:07 | NUR ---
Patient was awakened by peer screaming in unit. Patient requested Ativan, but is too early. Will administer when it is time. No acute distress noted.
[2022-10-15] MEDS: acetaminophen 325mg tablet PO PRN (05:53)
[2022-10-15] MEDS: LORazepam 0.5 MG tablet PO PRN ×2 (05:53→19:57)
--- NOTE | 2022-10-15 06:30 | NUR ---
Pt. recieved sleeping, normal respirations non labored.
--- NOTE | 2022-10-15 07:15 | NUR ---
Pt. awake, VS checked, pulse below 60, hypertension meds held, synthroid administered.
[2022-10-15] MEDS: levoTHYROXINE 25mcg tablet PO SCH (07:21)
[2022-10-15] MEDS: spironolactone 25 MG tablet PO SCH (07:48)
[2022-10-15] MEDS: carvedilol 6.25mg tablet PO SCH ×2 (07:49→19:57)
[2022-10-15] MEDS: amiodarone 200mg tablet PO SCH ×2 (07:49→19:57)
[2022-10-15] MEDS: losartan 25mg tablet PO SCH (07:50)
[2022-10-15] MEDS: amLODIPine 5mg tablet PO SCH (07:50)
--- NOTE | 2022-10-15 08:30 | NUR ---
Pt. awake, sitting on the side of bed eating breakfast
--- NOTE | 2022-10-15 10:30 | NUR ---
Pt. returning from the restroom, reported XLG BM, she is pleasant, and smiling
--- NOTE | 2022-10-15 12:22 | NUR ---
Pt. awake and sitting on the side of bed eating lunch, no distress
--- NOTE | 2022-10-15 14:30 | NUR ---
Pt. sitting on bed and talking on the phone.
--- NOTE | 2022-10-15 17:23 | NUR ---
Pt. awake and resting, no s/sx of distress.
--- NOTE | 2022-10-15 18:05 | NUR ---
Rebeca walker in [facility] - 10/15/22 at 1806 by [email or web address] tech took pt vitals, pt BP high, tech took pt BP again and got 178/
--- NOTE | 2022-10-15 18:06 | NUR ---
tech took pt vitals, pt BP high, tech took pt BP again and got 178/71, pt RN notified of pt BP
[2022-10-15] MEDS: rivaroxaban 20mg tablet PO SCH (18:10)
--- NOTE | 2022-10-15 18:30 | NUR ---
Patient is awake, alert, cooperative. Patient is finishing her dinner.
--- NOTE | 2022-10-15 19:46 | NUR ---
Patient is medication compliant. No distress. Mild dementia. No distress.
[2022-10-15] MEDS: atorvastatin 20mg tablet PO SCH (20:02)
--- NOTE | 2022-10-15 20:19 | NUR ---
Patient up to bathroom and back to bed. No distress, cooperative.
--- NOTE | 2022-10-15 21:40 | NUR ---
No distress. Patient had crackers and tea. She returned to sleep.
[2022-10-15] MEDS: ESCITALOPRAM OXALATE 5 MG TABLET PO SCH (21:52)
--- NOTE | 2022-10-15 22:39 | NUR ---
Patient is sleeping in a supine position. No distress.
--- NOTE | 2022-10-15 23:15 | NUR ---
Patient is sleeping intermittently. No distress. Fresh ice water is brought to the bedside.
--- NOTE | 2022-10-16 00:17 | NUR ---
Patient is sleeping quietly, no distress.
--- NOTE | 2022-10-16 01:20 | NUR ---
Patient is sleeping quietly. No distress.
--- NOTE | 2022-10-16 04:41 | NUR ---
Patient desires to have the hospital licensed clinical social worker contact her in this morning to see how her placement is going?
--- NOTE | 2022-10-16 05:29 | NUR ---
Patien is awake, she sits up and talkes with associate programmer analyst.
--- NOTE | 2022-10-16 06:39 | NUR ---
Patient is sleeping quietly, no distress.
--- NOTE | 2022-10-16 07:11 | NUR ---
Received pt. sleeping in bed, respirations are even and unlabored.
[2022-10-16] MEDS: levoTHYROXINE 25mcg tablet PO SCH (07:35)
[2022-10-16] MEDS: losartan 25mg tablet PO SCH (07:36)
[2022-10-16] MEDS: spironolactone 25 MG tablet PO SCH (07:36)
[2022-10-16] MEDS: amLODIPine 5mg tablet PO SCH (07:36)
[2022-10-16] MEDS: amiodarone 200mg tablet PO SCH ×2 (07:36→20:13)
[2022-10-16] MEDS: carvedilol 6.25mg tablet PO SCH ×2 (07:37→20:13)
--- NOTE | 2022-10-16 09:39 | NUR ---
Pt. up to use the bathroom at this time, she is able to ambulate independently.
--- NOTE | 2022-10-16 10:49 | NUR ---
Pt. requested PRN Ativan after awakening and feeling, "Startled." PRN Ativan administered and will continue to monitor closely.
[2022-10-16] MEDS: LORazepam 0.5 MG tablet PO PRN ×2 (10:54→20:13)
--- NOTE | 2022-10-16 13:12 | NUR ---
Pt. is laying in bed sleeping at this time, rr are even and unlabored.
--- NOTE | 2022-10-16 15:30 | NUR ---
Pt. is at bedside at this time visiting with forensic social worker. Addendum: 10/16/22 at 1713 by STEVIE Correction, pt. is visting with her neighbor.
--- NOTE | 2022-10-16 17:14 | NUR ---
Pt. is sleeping at this time, rr are even and unlabored.
[2022-10-16] MEDS: rivaroxaban 20mg tablet PO SCH (17:57)
--- NOTE | 2022-10-16 18:39 | NUR ---
Patient eating dinner. No distress observed. Continue to monitor.
[2022-10-16] MEDS: atorvastatin 20mg tablet PO SCH (20:13)
[2022-10-16] MEDS: ESCITALOPRAM OXALATE 5 MG TABLET PO SCH (20:13)
--- NOTE | 2022-10-16 20:21 | NUR ---
Patient sleeping on left side. No distress observed. Continue to monitor.
--- NOTE | 2022-10-16 21:40 | NUR ---
Patient sleeping. No distress observed. Continue to monitor.
--- NOTE | 2022-10-16 23:55 | NUR ---
Patient continues to sleep. No distress observed. Continue to monitor.
--- NOTE | 2022-10-17 01:09 | NUR ---
Patient sleeping on her right side. No distress observed. Continue to monitor.
--- NOTE | 2022-10-17 02:23 | NUR ---
Patient sleeping supine. No distress observed. Continue to monitor.
--- NOTE | 2022-10-17 03:42 | NUR ---
Patient sleeping. No distress observed. Continue to monitor.
[2022-10-17] MEDS: LORazepam 0.5 MG tablet PO PRN ×3 (03:55→23:37)
--- NOTE | 2022-10-17 03:57 | NUR ---
Patient states she wakes up about every 2 hours. Patient is feeling a little anxious. RN gave patient Ativan. Continue to monitor.
--- NOTE | 2022-10-17 05:51 | NUR ---
Patient sleeping. No distress observed. Continue to monitor.
--- NOTE | 2022-10-17 06:45 | NUR ---
Patient appears to be asleep in supine position. Breathing is unlabored. No s/sx of distress.
[2022-10-17] MEDS: spironolactone 25 MG tablet PO SCH (07:44)
[2022-10-17] MEDS: amiodarone 200mg tablet PO SCH ×2 (07:45→21:05)
[2022-10-17] MEDS: amLODIPine 5mg tablet PO SCH (07:45)
[2022-10-17] MEDS: levoTHYROXINE 25mcg tablet PO SCH (07:45)
[2022-10-17] MEDS: losartan 25mg tablet PO SCH (07:45)
[2022-10-17] MEDS: carvedilol 6.25mg tablet PO SCH ×2 (07:45→20:00)
--- NOTE | 2022-10-17 08:37 | NUR ---
Patient is sitting on the side of her bed finishing her breakfast tray. She denies needs.
--- NOTE | 2022-10-17 10:09 | NUR ---
Patient has been up to use the restroom after finishing breakfast. Now she is back in bed asleep in supine position.
--- NOTE | 2022-10-17 13:43 | NUR ---
Pt sleeping comfortably at this time/no signs of distress
--- NOTE | 2022-10-17 15:28 | NUR ---
Patient up to nurse's station requesting her bucket of water be filled. She denies other needs.
[2022-10-17] MEDS: rivaroxaban 20mg tablet PO SCH (18:09)
--- NOTE | 2022-10-17 18:30 | NUR ---
Patient is awake and finishing her meal. No distress noted.
--- NOTE | 2022-10-17 20:52 | NUR ---
Patient is awake, up to bathroom. No distress. Patient states a normal BM. Then back to bed.
[2022-10-17] MEDS: ESCITALOPRAM OXALATE 5 MG TABLET PO SCH (21:05)
[2022-10-17] MEDS: atorvastatin 20mg tablet PO SCH (21:05)
[2022-10-17] MEDS: acetaminophen 325mg tablet PO PRN (21:13)
--- NOTE | 2022-10-17 23:19 | NUR ---
Patient is sleeping quietly in a supine position.
--- NOTE | 2022-10-17 23:37 | NUR ---
Patient is now awake and complaining of anxiety. Ativan was given PO.
--- NOTE | 2022-10-18 02:00 | NUR ---
This patient is awake, she is sitting up in bed. No distress. Patient awoke to noise made by another patient who was yelling and screaming.
--- NOTE | 2022-10-18 03:11 | NUR ---
This patient is sleeping quietly in a supine position.
--- NOTE | 2022-10-18 04:15 | NUR ---
Patient is sleeping quietly.
--- NOTE | 2022-10-18 05:19 | NUR ---
Patient is sleeping quietly. No distress.
--- NOTE | 2022-10-18 05:29 | NUR ---
Rebeca walker in [facility] - 10/18/22 at 0530 by ZULMA Patient is sleeping quietly. No distress.
--- NOTE | 2022-10-18 08:00 | NUR ---
Patient eating breakfast. No complaints.
[2022-10-18] MEDS: amiodarone 200mg tablet PO SCH ×2 (08:34→20:21)
[2022-10-18] MEDS: levoTHYROXINE 25mcg tablet PO SCH (08:37)
[2022-10-18] MEDS: losartan 25mg tablet PO SCH (08:37)
[2022-10-18] MEDS: amLODIPine 5mg tablet PO SCH (08:39)
[2022-10-18] MEDS: carvedilol 6.25mg tablet PO SCH ×2 (08:39→20:21)
[2022-10-18] MEDS: spironolactone 25 MG tablet PO SCH (08:40)
[2022-10-18] MEDS: LORazepam 0.5 MG tablet PO PRN ×2 (08:40→20:21)
[2022-10-18] MEDS: rivaroxaban 20mg tablet PO SCH (08:41)
--- NOTE | 2022-10-18 11:50 | NUR ---
Patient is sitting upright on her bed reading her Bible. No distress.
--- NOTE | 2022-10-18 12:16 | NUR ---
Patient is sitting up eating lunch. No distress.
--- NOTE | 2022-10-18 14:09 | NUR ---
Patient is resting quietly on her bed. No distress.
--- NOTE | 2022-10-18 15:24 | NUR ---
Patient is sleeping quietly, no distress.
--- NOTE | 2022-10-18 16:45 | NUR ---
The patient is sitting quietly at bedside reading her Bible.
--- NOTE | 2022-10-18 17:43 | NUR ---
Patient is sitting quietly on hr bed awaiting arrival of her dinner tray.
--- NOTE | 2022-10-18 18:50 | NUR ---
The patient fell off a rolling stool and fell approximately 1.5 feet and was assessed afterwards and there was no apparent injury. Vital signs 98.4,61,158/69. Dr. Carpenter was made aware.
--- NOTE | 2022-10-18 19:50 | NUR ---
The patient is pleasant. She is waiting for placement. She is not able to verbalize a plan if she left the ER.
[2022-10-18] MEDS: atorvastatin 20mg tablet PO SCH (20:21)
[2022-10-18] MEDS: acetaminophen 325mg tablet PO PRN (20:21)
[2022-10-18] MEDS: ESCITALOPRAM OXALATE 5 MG TABLET PO SCH (20:22)
--- NOTE | 2022-10-18 21:22 | NUR ---
The patient given a snack
--- NOTE | 2022-10-18 22:15 | NUR ---
The patient appears to be sleeping
--- NOTE | 2022-10-19 01:15 | NUR ---
The patient awakened by female peer screaming.
--- NOTE | 2022-10-19 02:53 | NUR ---
The patient up to the nursing station complaining of right wrist pain. Dr. Norton was made aware that she had a fall at the change of shift. There is no outward signs of injury but Dr. Norton will order an xray
--- NOTE | 2022-10-19 03:10 | NUR ---
Xray at the bedside
--- NOTE | 2022-10-19 03:22 | NUR ---
Dr. Morrissey at the bedside
--- NOTE | 2022-10-19 03:51 | NUR ---
splint to right wrist applied by tech
--- NOTE | 2022-10-19 04:48 | NUR ---
The patient appears to be sleeping
--- NOTE | 2022-10-19 05:20 | NUR ---
The patient is awake since being disturbed by female peer.
--- NOTE | 2022-10-19 07:00 | NUR ---
Pt resting comfortably, rr even and unlabored.
[2022-10-19] MEDS: acetaminophen 325mg tablet PO PRN ×2 (07:36→22:25)
[2022-10-19] MEDS: carvedilol 6.25mg tablet PO SCH ×2 (07:36→20:53)
[2022-10-19] MEDS: spironolactone 25 MG tablet PO SCH (07:37)
[2022-10-19] MEDS: levoTHYROXINE 25mcg tablet PO SCH (07:37)
[2022-10-19] MEDS: losartan 25mg tablet PO SCH (07:37)
[2022-10-19] MEDS: amiodarone 200mg tablet PO SCH ×2 (07:38→20:53)
[2022-10-19] MEDS: amLODIPine 5mg tablet PO SCH (07:38)
--- NOTE | 2022-10-19 09:00 | NUR ---
Pt awake, finished 100% of her breakfast. Pt was compliant with medication and care. Pt presents with linear thought process, but has a difficult time recalling how she got to [facility]. Pt thought she first was at [facility], when records indicate she was in [place]. Pt feels her confusion was r/t being taken off her "Xanex and Amitriptyline." Pt requsted Tylenol for right wrist pain 01/16. Pt also states she hasn't slept well r/t another patient disrupting unit. Pt denies all psychotic symptoms "I like myself."
--- NOTE | 2022-10-19 11:12 | NUR ---
Pt continues to rest comfortably, rr even and unlabored.
--- NOTE | 2022-10-19 13:05 | NUR ---
Pt brought up her lunch tray stating "I can't eat this, my stomach is upset." Pt states "Your arent' going to kick me out are you?" Pt concerned she would be released from hospital. Once customs entry writer reassured pt she wasn't going to be "kicked out" pt stated "okay then maybe I can eat something." Pt later returned her tray, then talking about "that high school social studies teacher made me mad." "She was going to make me leave and it was snowing outside." Pt also believes that her high school social studies teacher told her friend/caregiver that "she would have to pay for all the repairs on her house." Pt feels she could be alone, however needs accomotions completed at her home (i.e. wheelchair ramp.)
[2022-10-19] MEDS: LORazepam 0.5 MG tablet PO PRN ×2 (14:46→22:24)
--- NOTE | 2022-10-19 15:05 | NUR ---
Pt in high buck's position. Pt is icing her right wrist. Pt's neighbor/friend is at bedside.
--- NOTE | 2022-10-19 16:15 | NUR ---
Per Suly, SW - states patient has no heat at home and unable to return. Pt's caregiver/neighbor is going to [facility] tomorrow for [facility] to be delivered. SW will keep [facility] staff updated. Possible discharge in the next couple of days.
--- NOTE | 2022-10-19 17:32 | NUR ---
Pt in high buck's position, resting comfortably. RR even and unlabored.
[2022-10-19] MEDS: rivaroxaban 20mg tablet PO SCH (20:53)
[2022-10-19] MEDS: atorvastatin 20mg tablet PO SCH (20:53)
[2022-10-19] MEDS: ESCITALOPRAM OXALATE 5 MG TABLET PO SCH (20:54)
--- NOTE | 2022-10-20 00:36 | NUR ---
Pt pleasant and cooperative this shift. Has been kind and understanding toward a pt that has yelled almost this entire shift so far. Pt is pleasantly confused repeats the same story several times. Pt timothy she was told that she can stay here as long as she wants until she gets a house.
--- NOTE | 2022-10-20 05:57 | NUR ---
Pt up to bathroom discovered a bruise on right hip she believes is a from a fall yesterday. Pt described it as "A little sore" Lying in bed at this time.
--- NOTE | 2022-10-20 07:00 | NUR ---
Pt sleeping restfully, rr even and unlabored.
--- NOTE | 2022-10-20 09:03 | NUR ---
Pt awake sitting on side of bed finishing her breakfast. Pt compliant with care and medication. Reports LBM this morning. Pt continues to reports some anxiety about going home "I hope I am not going home today." Pt requested "something for anxiety." PRN Ativan 0.5 mg was administed with morning meds. Pt's friend Sarita was picking up an application for [facility] to come and assess home. Pt is waiting for heaters. Reassured patient she wouldn't go home without heat. Addendum: 10/20/22 at 1523 by DAVE Pt denies all psychotic symptoms.
[2022-10-20] MEDS: spironolactone 25 MG tablet PO SCH (09:42)
[2022-10-20] MEDS: losartan 25mg tablet PO SCH (09:42)
[2022-10-20] MEDS: LORazepam 0.5 MG tablet PO PRN ×2 (09:42→20:45)
[2022-10-20] MEDS: rivaroxaban 20mg tablet PO SCH (09:42)
[2022-10-20] MEDS: amLODIPine 5mg tablet PO SCH (09:42)
[2022-10-20] MEDS: carvedilol 6.25mg tablet PO SCH ×2 (09:43→20:45)
[2022-10-20] MEDS: amiodarone 200mg tablet PO SCH ×2 (09:43→20:45)
[2022-10-20] MEDS: levoTHYROXINE 25mcg tablet PO SCH (09:43)
--- NOTE | 2022-10-20 11:00 | NUR ---
Pt resting comfortably in mid buck's position, rr even and unlabored.
--- NOTE | 2022-10-20 15:24 | NUR ---
Pt lying in bed awake, pt told editorial writer "Sarita told me I wouldn't have to go home unless she could take me home." "My driveway has a big hole down in because of the rain." Human Resources Professional reassured patient that she wouldn't go home until issues with heat were addressed. Pt states she has a son, but he is unable to help her because he has cancer. Pt was given fresh water and offered some tea.
--- NOTE | 2022-10-20 17:30 | NUR ---
Pt talking on phone to her friend Sarita.
--- NOTE | 2022-10-20 18:59 | NUR ---
Pt off phone with Sarita. Paperwork has been started for [facility] to come in and make necessary changed. Pt presents with a bright affect "I should be going home ." Pt does have some apprehension about not going home with current medications she has been receiving during this admit. NORMA Tubbs is aware of circumstances. Pt states "I can't wait to go home I miss my cat, but I just need medicine to get me through the weekend. Soil Chemist will leave a voice message for Suly.
--- NOTE | 2022-10-20 19:53 | NUR ---
Pt lying restfully on left side, rr even and unlabored.
[2022-10-20] MEDS: atorvastatin 20mg tablet PO SCH (20:45)
[2022-10-20] MEDS: ESCITALOPRAM OXALATE 5 MG TABLET PO SCH (20:45)
--- NOTE | 2022-10-20 21:00 | NUR ---
Pt lying on her bed awake. Pt compliant with HS medications. Pt slightly tangential r/t being nervous about going home. PRN Ativan 0.5 mg was administered with HS meds.
--- NOTE | 2022-10-20 23:45 | NUR ---
Pt resting comfortably on right side, rr even and unlabored.
--- NOTE | 2022-10-21 00:38 | NUR ---
Pt resting comfortably on left side, pt repositions self. RR even and unlabored.
--- NOTE | 2022-10-21 02:09 | NUR ---
Pt woke, ambulated unit for a short time. Pt states "I am excited about going home." Pt declined any intervention. Pt asked for a cup of warm tea, which was provided.
--- NOTE | 2022-10-21 02:29 | NUR ---
Pt resting comfortably, rr even and awake.
--- NOTE | 2022-10-21 05:22 | NUR ---
Patient continues to rest comfortably, rr even and unlabored.
[2022-10-21] MEDS: levoTHYROXINE 25mcg tablet PO SCH (07:00)
--- NOTE | 2022-10-21 07:09 | NUR ---
Patient laying in bed awake. Another patient has been yelling non-stop and has kept everybody awake. Continue to monitor.
[2022-10-21] MEDS: carvedilol 6.25mg tablet PO SCH ×2 (08:00→20:23)
--- NOTE | 2022-10-21 08:05 | NUR ---
Patient sitting up and eating breakfast. No distress observed. Continue to monitor.
--- NOTE | 2022-10-21 08:09 | NUR ---
Note denise in ED - 10/21/22 at 1257 by AYO Patient sitting up and eating breakfast. No distress observed. Continue to monitor.
[2022-10-21] MEDS: amLODIPine 5mg tablet PO SCH (08:55)
[2022-10-21] MEDS: LORazepam 0.5 MG tablet PO PRN ×2 (08:57→18:45)
[2022-10-21] MEDS: amiodarone 200mg tablet PO SCH ×2 (08:57→20:23)
[2022-10-21] MEDS: losartan 25mg tablet PO SCH (08:57)
[2022-10-21] MEDS: spironolactone 25 MG tablet PO SCH (08:59)
--- NOTE | 2022-10-21 10:01 | NUR ---
Patient sleeping on right side. No distress observed. Continue to monitor.
--- NOTE | 2022-10-21 12:07 | NUR ---
Patient eating lunch. No distress observed. Continue to monitor.
--- NOTE | 2022-10-21 14:11 | NUR ---
Patient awake and reading her bible. No distress observed. Continue to monitor.
--- NOTE | 2022-10-21 16:17 | NUR ---
Patient's neighbor, Sarita here to see patient. Sarita spoke to Suly about patient getting her medications before she picks her up. Patient is getting into [facility] as an emergency appointment. Patient will need about 2 weeks worth of medication. IRAIS Childers will work on that tomorrow. Patient will be going home around 1400. Continue to monitor.
[2022-10-21] MEDS: rivaroxaban 20mg tablet PO SCH (18:00)
--- NOTE | 2022-10-21 20:09 | NUR ---
Pt arrived from [facility] accompanied by Francois Oakley mobil staff. According to Francois oakley pt has been depressed and ran out into traffic stating he is suicidal. Pt is now saying he is suicidal with plan to overdose on his meds. Pt states his brother last month and he is feeling hopeless and doesnt want to live anymore. Pt is calm/cooperative sitting quietly in bed, belongings check completed.
[2022-10-21] MEDS: ESCITALOPRAM OXALATE 5 MG TABLET PO SCH (20:23)
[2022-10-21] MEDS: atorvastatin 20mg tablet PO SCH (20:23)
--- NOTE | 2022-10-21 20:41 | NUR ---
Patient was received at 0630 from Helen Johnston. Patient came up to nurse asking for prn ativan for anxiety. Patient was given prn 0.5mg ativan. Patient lung sounds clear, oxygen 94 and pulse manuelly 54. Patient retuned to bed until nurse brought night medications. Patient had to be awaken to take meds. Patient is polite and cooperative. Patient is currently sleeping breath sounds even and unlabored
[2022-10-21] MEDS: acetaminophen 325mg tablet PO PRN (21:41)
--- NOTE | 2022-10-21 22:35 | NUR ---
Patient observed sleeping. Breathes even and unlabored
--- NOTE | 2022-10-22 00:35 | NUR ---
Patient observed sleeping quietly in bed. Breaths even. Will continue to monitor
--- NOTE | 2022-10-22 02:33 | NUR ---
Patient currently sleeping quietly. Patient got up to go to the bathroom and came out asking for morning medications. Patient laughed when she realized how late it was and went back to bed.
--- NOTE | 2022-10-22 04:44 | NUR ---
Patient currently sleeping quietly. Breaths even and unlabored.
[2022-10-22 05:51] VITALS: BP_DIAS 60
--- NOTE | 2022-10-22 06:49 | NUR ---
Patient sleeping supine. No distress observed. Continue to monitor.
--- NOTE | 2022-10-22 08:12 | NUR ---
Patient eating breakfast. No distress observed. Continue to monitor.
[2022-10-22] MEDS: losartan 25mg tablet PO SCH (08:57)
[2022-10-22] MEDS: amLODIPine 5mg tablet PO SCH (08:57)
[2022-10-22] MEDS: carvedilol 6.25mg tablet PO SCH (08:57)
[2022-10-22 08:58] VITALS: BP_SYST 151
[2022-10-22] MEDS: spironolactone 25 MG tablet PO SCH (08:58)
[2022-10-22] MEDS: amiodarone 200mg tablet PO SCH (08:58)
[2022-10-22] MEDS: levoTHYROXINE 25mcg tablet PO SCH (09:08)
[2022-10-22] MEDS: LORazepam 0.5 MG tablet PO PRN ×2 (09:12→16:14)
--- NOTE | 2022-10-22 10:01 | NUR ---
Patient sleeping. No distress observed. Continue to monitor.
[2022-10-22] MEDS ORDERED: LORA-268 PO (10:53)
--- NOTE | 2022-10-22 12:07 | NUR ---
Patient eating lunch. No distress observed. Continue to monitor.
[2022-10-22] MEDS ORDERED: CARV-49 PO (13:14)
[2022-10-22] MEDS ORDERED: AMLO10TA48 PO (13:14)
[2022-10-22] MEDS ORDERED: CITA10TA22 PO (13:14)
[2022-10-22] MEDS ORDERED: AMIO200T61 PO (13:14)
[2022-10-22] MEDS ORDERED: RIVA20TA PO (13:14)
[2022-10-22] MEDS ORDERED: SPIR25TA PO (13:14)
[2022-10-22] MEDS ORDERED: LEVO50CA4 PO (13:14)
--- NOTE | 2022-10-22 14:02 | NUR ---
Patient sleeping supine. No distress observed. Continue to monitor.
--- NOTE | 2022-10-22 15:18 | NUR ---
Patient sitting up in bed. No distress observed. Continue to monitor.
== END 2022-10-22 16:56 | disposition home or self-care (01) ==
LOC: ER 15:06
DX: F41.9 Anxiety disorder, unspecified (principal); Z20.822 Contact with and (suspected) exposure to COVID-19; R41.82 Altered mental status, unspecified; F32.A Depression, unspecified; I50.9 Heart failure, unspecified; J44.9 Chronic obstructive pulmonary disease, unspecified; Z88.5 Allergy status to narcotic agent
CPT/HCPCS: 29125; 36415; 70450; 71045; 80053; 80305; 80320; 81001; 84443; 85025; 87811; 96360; 96361; 99285; J7030